=== PATIENT | female | born 1995 | race Caucasian/White ===

== ENCOUNTER 2022-01-09 15:57 | Emergency (ER) | payer OTHER ==
[2022-01-09 17:13] LABS: HEMOGLOBIN 13.7 gm/dl (12.3-15.3); RED BLOOD COUNT 4.7 M/UL (4.00-5.10); WHITE BLOOD COUNT 7.1 K/UL (4.5-11.0)
[2022-01-09 17:47] LABS: BUN/CREATININE RATIO 13 (0-10)
== END 2022-01-09 20:25 | disposition home or self-care (01) ==
LOC: ER1 15:57
PROVIDERS: Emergency Medicine
DX: R00.2 Palpitations (principal); R42 Dizziness and giddiness; F17.200 Nicotine dependence, unspecified, uncomplicated; Z86.59 Personal history of other mental and behavioral disorders; Z20.822 Contact with and (suspected) exposure to COVID-19
CPT/HCPCS: 70450; 71045; 80053; 82550; 82553; 83874; 84484; 84703; 85025; 85379; 93005; 99284; U0002

== ENCOUNTER → 2022-01-10 | Outpatient (CLI) | payer OTHER | LOC: HEART 5 13:18 | DX: R00.2 Palpitations (principal) ==

== ENCOUNTER 2022-05-10 22:09 | Emergency (ER) | payer OTHER | END 2022-05-11 00:03 | disposition left against medical advice (07) | LOC: ER1 22:09 | DX: Z53.21 Procedure and treatment not carried out due to patient leaving prior to being seen by health care provider (principal) ==

== ENCOUNTER 2022-05-25 16:10 | Emergency (ER) | payer OTHER ==
[2022-05-25 16:44] LABS: HEMOGLOBIN 12.3 gm/dl (12.3-15.3); RED BLOOD COUNT 4.23 M/UL (4.00-5.10); WHITE BLOOD COUNT 9.8 K/UL (4.5-11.0)
[2022-05-25 17:18] LABS: BUN/CREATININE RATIO 10 (0-10)
[2022-05-25] MEDS ORDERED: ZOFRAN 4 MG TAB4 MG PO (18:09)
[2022-05-25] MEDS ORDERED: OMNICEF 300 MG300 MG PO (18:09)
== END 2022-05-25 19:53 | disposition home or self-care (01) ==
LOC: ER1 16:10
PROVIDERS: Preventive Medicine Occupational Medicine
DX: N39.0 Urinary tract infection, site not specified (principal); F17.290 Nicotine dependence, other tobacco product, uncomplicated; Z88.8 Allergy status to other drugs, medicaments and biological substances
CPT/HCPCS: 80053; 81001; 83690; 84703; 85025; 96372; 99283; J0696; J1885